=== PATIENT | male | born 1995 | race Caucasian/White ===

== ENCOUNTER 2016-08-04 06:10 | Emergency (ER) | payer OTHER ==
[~2016-08-04] VITALS: Ht 180.3 cm; Wt 72.6 kg
[2016-08-04 07:14] LABS: BASOPHIL % 0.4 % (0-2); PLATELET COUNT 293 x10^3mcL (130-400); RED CELL DISTRIBUTION WIDTH 13.1 % (11.5-14.5)
[2016-08-04 07:37] LABS: AST/SGOT 26 U/L (15-37); CALCIUM 8.4 mg/dL (8.5-10.1); CHLORIDE SERUM 108 mmol/L (98-107); GFR1 > 60 mL/min; GLUCOSE SERUM 111 mg/dL (74-106); POTASSIUM SERUM 4.1 mmol/L (3.5-5.1); SODIUM SERUM 141 mmol/L (136-145)
[2016-08-04 07:55] LABS: ALKALINE PHOSPHATASE 96 U/L (46-116); ALT/SGPT 66 U/L (16-63); BILIRUBIN TOTAL 0.32 mg/dL (0.20-1.00); CHOLESTEROL 160 mg/dL (<200); HDL CHOLESTEROL 48 mg/dL (40-60); PHOSPHOROUS 2.9 mg/dL (2.5-4.9); TOTAL PROTEIN, SERUM 6.9 g/dL (6.4-8.2)
[2016-08-04 08:47] VITALS: BP 143/57
== END 2016-08-04 08:47 | disposition home or self-care (01) ==
LOC: ED 06:10
PROVIDERS: Emergency Medicine
DX: R07.89 Other chest pain (principal); F41.9 Anxiety disorder, unspecified
CPT/HCPCS: 83880; J1885; Q0092

== ENCOUNTER 2019-03-08 17:44 | Emergency (ER) | payer OTHER ==
[~2019-03-08] VITALS: Ht 177.8 cm; Wt 82.6 kg
[2019-03-08 19:20] VITALS: Ht 177.8 cm; Wt 82.6 kg
[2019-03-08 20:47] VITALS: BP 149/84
== END 2019-03-08 20:47 | disposition home or self-care (01) ==
LOC: ED 17:44
DX: S63.92XA Sprain of unspecified part of left wrist and hand, initial encounter (principal); F41.9 Anxiety disorder, unspecified; F32.9 Major depressive disorder, single episode, unspecified; X58.XXXA Exposure to other specified factors, initial encounter; Y93.67 Activity, basketball; Y92.310 Basketball court as the place of occurrence of the external cause; Y99.8 Other external cause status
CPT/HCPCS: A4570

== ENCOUNTER 2020-07-05 16:51 | Emergency (ER) | payer OTHER ==
[~2020-07-05] VITALS: Ht 175.3 cm; Wt 80.3 kg
[2020-07-05 17:03] VITALS: BP 151/94; Ht 175.3 cm; Wt 80.3 kg
[2020-07-05] MEDS ORDERED: TYLENOL EXTRA500 M3 PO (18:22)
[2020-07-05] MEDS ORDERED: IBU600 M2 PO (18:22)
== END 2020-07-05 18:36 | disposition home or self-care (01) ==
LOC: ED 16:51
DX: S92.355A Nondisplaced fracture of fifth metatarsal bone, left foot, initial encounter for closed fracture (principal); Z90.89 Acquired absence of other organs; X50.1XXA Overexertion from prolonged static or awkward postures, initial encounter; Y93.89 Activity, other specified; Y92.89 Other specified places as the place of occurrence of the external cause; Y99.8 Other external cause status
CPT/HCPCS: J1885